=== PATIENT | female | born 1970 | race Caucasian/White ===

== ENCOUNTER 2016-06-25 05:36 | Inpatient (IN) | payer OTHER ==
[~2016-06-25] VITALS: Ht 162.6 cm; Wt 86.0 kg
[~2016-06-25 05:36] MED LIST: LOVENOX40 MG/0.4 SC; PROAIR HFA8.5 GM IH
[2016-06-25 05:52] VITALS: BP 121/84
[2016-06-25 11:20] VITALS: BP 120/74
[2016-06-25 16:00] VITALS: BP 142/73
[2016-06-25 19:33] VITALS: BP 149/77
[2016-06-25 23:42] VITALS: BP 131/69
[2016-06-26 04:08] VITALS: BP 128/72
[2016-06-26 07:22] LABS: MCH 24.4 PG (29.0-34.0); MCHC 30.7 G/DL (30.0-36.0); MCV 79.3 FL (83-99); MEAN PLAT.VOLUME 11.9 uM^3 (9.5-12.4); PLATELET COUNT 214 K/uL (156-360); RBC DIS.WIDTH-CV 14.5 % (11.8-14.6); RBC DIS.WIDTH-SD 41.9 % (39-53)
[2016-06-26 07:27] LABS: RED BLOOD COUNT 3.53 M/uL (3.80-5.20); WHITE BLOOD COUNT 9.4 K/uL (4.1-10.2)
[2016-06-26 08:00] VITALS: BP 116/50
[2016-06-26 12:07] VITALS: BP 146/77
[2016-06-26 14:29] LABS: EOSINOPHIL (%) 0.1 % (0-5); IMMATURE GRANULOCYTE (%) 0.7 % (0.0-0.7); IMMATURE GRANULOCYTE COUNT 0.1 K/uL; INSTRUMENT ABS NEUTROPHIL CT 8.1 K/uL; LYMPHOCYTE COUNT 1.1 K/uL (1.0-2.8); MCH 24.3 PG (29.0-34.0); MCHC 30.7 G/DL (30.0-36.0); MCV 79.2 FL (83-99); MEAN PLAT.VOLUME 11.4 uM^3 (9.5-12.4); MONOCYTE (%) 8.2 % (3-12); MONOCYTE COUNT 0.8 K/uL (0-0.8); NEUTROPHIL (%) 80.1 % (45-76); NEUTROPHIL COUNT 8.1 K/uL (1.8-6.4); PLATELET COUNT 220 K/uL (156-360); RBC DIS.WIDTH-CV 14.5 % (11.8-14.6); RBC DIS.WIDTH-SD 41.6 % (39-53); RED BLOOD COUNT 3.79 M/uL (3.80-5.20); WHITE BLOOD COUNT 10.1 K/uL (4.1-10.2)
[2016-06-26 16:00] VITALS: BP 120/57
[2016-06-26 19:35] VITALS: BP 134/73
[2016-06-26 23:33] VITALS: BP 122/63
[2016-06-27 03:34] VITALS: BP 132/64
[2016-06-27] MEDS ORDERED: CHROMAGEN,1 CAPSULE PO (07:42)
[2016-06-27] MEDS ORDERED: ENDOCET 5-3251 EACH PO (07:42)
[2016-06-27] MEDS ORDERED: IBUPROFEN800 MG PO (07:42)
== END 2016-06-27 11:13 | disposition home or self-care (01) | DRG 743 ==
LOC: 2SOUTH 05:36 → 2EASTP 11:13 → 2SOUTH 11:36 → 2EASTP 06-27 11:13
PROVIDERS: Obstetrics & Gynecology Obstetrics
DX: D25.9 Leiomyoma of uterus, unspecified (principal); N92.0 Excessive and frequent menstruation with regular cycle; D50.9 Iron deficiency anemia, unspecified; Z86.718 Personal history of other venous thrombosis and embolism; Z79.01 Long term (current) use of anticoagulants; J45.909 Unspecified asthma, uncomplicated
CPT/HCPCS: 85025; 85027; 88307; J0690; J1100; J1170; J1650; J1885; J2250; J2405; J2710; J3010; J7120